=== PATIENT | female | born 1955 | race Caucasian/White ===

== ENCOUNTER 2022-04-04 15:18 | Outpatient (REF) | payer MEDICARE, MEDICAID, SELFPAY ==
[2022-04-04 22:40] LABS: HGB 13.1 g/dL (11.2-15.7); MCH 28.5 pg (27.0-33.0); MCHC 33.6 % (32.0-36.0); MCV 85 fL (80-95); MPV 10.7 fL (8.0-11.0); Platelet Count 145 10^3/uL (130-400); RBC 4.59 10^6/uL (3.93-5.22); WBC 9.53 10^3/uL (4.4-10.8)
[2022-04-04 22:55] LABS: ALT 30 U/L (14-59); AST 54 U/L (15-37); Alkaline Phosphatase 302 U/L (46-116); Anion Gap 6.6 mmol/L (3-11); BUN 11 mg/dL (7-18); Bilirubin, Total 4.1 mg/dL (0.2-1.0); CO2 26.4 mmol/L (21.0-32.0); Calcium 9.4 mg/dL (8.5-10.1); Chloride 88 mmol/L (98-107); Estimated GFR 61.36 (mL/min/1.73m2); Glucose 255 mg/dL (74-106); Potassium 4.9 mmol/L (3.5-5.1); Total Protein 6.6 g/dL (6.4-8.2)
[2022-04-04 23:02] LABS: Sodium 121 mmol/L (136-145)
== END 2022-04-04 15:19 | disposition home or self-care (01) ==
LOC: NCHCN 15:18
PROVIDERS: Visit Provider Nurse Practitioner Family
DX: K75.81 Nonalcoholic steatohepatitis (NASH) (principal)
CPT/HCPCS: 80053; 85027